=== PATIENT | female | born 1990 | race African-American/Black ===

== ENCOUNTER 2018-09-16 06:13 | Emergency (ER) | payer OTHER ==
[~2018-09-16] VITALS: Ht 165.1 cm; Wt 117.9 kg
[2018-09-16 06:27] VITALS: TEMP 97.6
[2018-09-16] MEDS ORDERED: PRENATAL MVI (06:30)
[2018-09-16] MEDS ORDERED: GLUCOPHAGE XR500 M1 PO (06:30)
[2018-09-16] MEDS ORDERED: NORCO 325 MG-51 TAB PO (06:50)
[2018-09-16] MEDS ORDERED: FLEXERIL 1010 MG/TAB PO (06:50)
[2018-09-16 07:56] LABS: COLLECTION METHOD CLEAN CATCH
[2018-09-16 08:07] LABS: PH 6 (5-8); SQUAMOUS EPITHELIAL 0-2 /hpf; URINE APPEARANCE Clear; URINE BACTERIA None Seen /hpf; URINE BILIRUBIN Negative (NEGATIVE); URINE BLOOD Negative (NEGATIVE); URINE COLOR Yellow; URINE GLUCOSE Negative (NEGATIVE); URINE KETONE Negative (NEGATIVE); URINE LEUKOCYTE ESTERASE Negative (NEGATIVE); URINE NITRATE Negative (NEGATIVE); URINE PROTEIN(semi-quant) Negative (NEGATIVE); URINE RBC 0-2 /hpf; URINE UROBILINOGEN Negative (NEGATIVE)
[2018-09-16 08:27] VITALS: BP 110/63; PULSE 75
== END 2018-09-16 08:29 | disposition home or self-care (01) ==
LOC: COL.ER 06:13
PROVIDERS: Emergency Medicine
DX: M54.41 Lumbago with sciatica, right side (principal); Z79.84 Long term (current) use of oral hypoglycemic drugs
CPT/HCPCS: J1885

== ENCOUNTER 2019-05-27 06:53 | Emergency (ER) | payer BC, OTHER ==
[~2019-05-27] VITALS: Ht 165.1 cm; Wt 118.2 kg
[~2019-05-27 06:53] MED LIST: FLEXERIL 1010 MG/TAB PO; GLUCOPHAGE XR500 M1 PO; NORCO 325 MG-51 TAB PO; PRENATAL MVI
[2019-05-27 07:06] VITALS: BP 116/72; PULSE 77; TEMP 97.6
== END 2019-05-27 09:00 | disposition home or self-care (01) ==
LOC: COL.ER 06:53
DX: S83.91XA Sprain of unspecified site of right knee, initial encounter (principal); X58.XXXA Exposure to other specified factors, initial encounter